=== PATIENT | male | born 1975 | race Two or more races ===

== ENCOUNTER 2018-12-10 22:14 | Emergency (ER) | payer MEDICAID ==
[~2018-12-10] VITALS: Ht 175.3 cm; Wt 79.4 kg
--- NOTE | 2018-12-10 22:20 | NUR ---
PT BIBPA FOR G-TUBE REPLACEMENT. TIWARI CATHETER IN PLACE OF G-TUBE. PT AAXO1. NON-VERBAL DUE TBI. RESPIRATIONS EVEN AND UNLABORED. NAD NOTED. PT PUT ON THE MONITOR AND PULSE OX. PENDING EVAL FROM ROSALINDA CARBAJAL.
--- NOTE | 2018-12-10 22:30 | NUR ---
ER AT BEDSIDE FOR G-TUBE REPLACEMENT. 22FR G-TUBE PLACED.
[2018-12-10] MEDS ORDERED: DIATR MEGLU/DIATRIZOATE SODIUM 30 ML BOTTLE (GASTROGRAPHIN) ONE (22:47)
--- NOTE | 2018-12-10 22:56 | NUR ---
XRAY AT BEDSIDE.
[2018-12-10] MEDS ORDERED: DIATR MEGLU/DIATRIZOATE SODIUM 120 ML BOTTLE (GASTROGRAPHIN) PO ONE (23:00)
--- NOTE | 2018-12-10 23:09 | NUR ---
CALLED [facility] FOR TRANSPORT ETA 0030 OF WAS GIVEN. TRIP#[id number]
--- NOTE | 2018-12-10 23:30 | NUR ---
Patient is resting comfortably in bed. VSS. NAD NOTED.
--- NOTE | 2018-12-11 00:07 | NUR ---
[facility] CALLED DELAYED 1 HR. ETA 0130.
--- NOTE | 2018-12-11 00:36 | NUR ---
Patient is resting comfortably in bed. VSS. NAD NOTED.
--- NOTE | 2018-12-11 01:08 | NUR ---
REPORT GIVEN TO EMT FOR TRANSFER BACK TO [facility]. PT VSS. NAD NOTED. DISCHARGE INSTRUCTIONS AND XRAY RESULTS GIVEN TO EMT.
[2018-12-11 01:09] VITALS: BP 128/80
== END 2018-12-11 01:10 | disposition home or self-care (01) ==
LOC: ER 22:19
DX: K94.23 Gastrostomy malfunction (principal); R56.9 Unspecified convulsions; I12.9 Hypertensive chronic kidney disease with stage 1 through stage 4 chronic kidney disease, or unspecified chronic kidney disease; N18.9 Chronic kidney disease, unspecified; I73.9 Peripheral vascular disease, unspecified; G82.20 Paraplegia, unspecified; F20.9 Schizophrenia, unspecified; Z87.820 Personal history of traumatic brain injury
CPT/HCPCS: 74018; Q9963